=== PATIENT | female | born 1975 | race Caucasian/White ===

== ENCOUNTER 2022-08-10 14:41 | Outpatient (CLI) | payer BC, SELFPAY ==
--- NOTE | 2022-08-10 15:00 | CRLHL7_ITS ---
For Patients: As a result of the Century Cures Act, medical imaging exams and procedure reports are released immediately into your electronic medical record. You may view this report before your referring provider. If you have questions, please contact your health care provider. CLINICAL HISTORY: Vaginal bleeding after hysterectomy TECHNIQUE: Real time, hastings scale images were acquired of the pelvis using a transabdominal and transvaginal approach. Color Doppler analysis was performed of the ovaries. FINDINGS: Hysterectomy. Right ovary measures 2.2 x 1.1 x 1.8 centimeters left ovary measures 2.8 x 1.5 x 2.3 centimeters ovaries appear unremarkable. Normal left flow to both ovaries there is no free fluid. No adnexal mass. IMPRESSION: Unremarkable ultrasound. Dictated by Theodora Choudhary MD @ 08/10/2022 7:03:34 PM (Electronically Signed)
== END 2022-08-10 14:42 | disposition home or self-care (01) ==
LOC: US 14:42
PROVIDERS: PCP Family Medicine; Visit Provider Registered Nurse
DX: N93.9 Abnormal uterine and vaginal bleeding, unspecified (principal)
CPT/HCPCS: 76830; 76856

== ENCOUNTER 2022-08-22 07:50 | Outpatient (CLI) | payer BC, SELFPAY ==
--- NOTE | 2022-08-22 08:00 | CRLHL7_ITS ---
For Patients: As a result of the 21st Century Cures Act, medical imaging exams and procedure reports are released immediately into your electronic medical record. You may view this report before your referring provider. If you have questions, please contact your health care provider. INDICATION: Left flank pain and left pelvis pain. Spotting. COMPARISON: No prior CT TECHNIQUE: CT examination of the abdomen and pelvis was performed following the uneventful intravenous administration of 74 cc of Omnipaque 350. Thin section axial images were obtained from the lung bases through the pubic symphysis. Oral contrast was not administered. Please note that all CT scans at this facility use dose modulation, iterative reconstruction, and/or weight-based dosing when appropriate to reduce radiation dose to as low as reasonably achievable. FINDINGS: LUNG BASES: The lung bases as visualized appear normal.The heart size is normal at the lung bases. LIVER/BILIARY SYSTEM:The liver is normal in size. A few scattered low-density lesions are noted that are too small to characterize but statistically most likely benign. There has been a cholecystectomy. Mild intra and extrahepatic biliary ductal dilatation. This is probably due to reservoir phenomena. Whether this requires further imaging should be based on the presence or absence of right upper quadrant pain and LFTs. ADRENALS: Normal KIDNEYS, URETERS and BLADDER:The kidneys appear normal. No visible mass, calculus or hydronephrosis. The ureters and bladder as visualized appear normal. SPLEEN:Normal appearance. PANCREAS: Appears normal. RETROPERITONEUM and MESENTERY: There is no mass, adenopathy or aortic aneurysm. GASTROINTESTINAL SYSTEM: There is no evidence of diverticulitis, colitis, mechanical obstruction, or appendicitis. The small bowel as visualized appears normal.Mild diffuse fecal retention PELVIS: No mass, adenopathy or free fluid.The uterus appears to be surgically absent OSSEOUS STRUCTURES and ABDOMINAL WALL: There is an age-appropriate appearance of the osseous structures.There is small fat containing umbilical hernia OTHER: No free fluid or free air. IMPRESSION: 1. Scattered low-density hepatic lesions are indeterminate but probably benign. Mild biliary ductal dilatation likely a reservoir phenomena status post cholecystectomy. Please review the comment regarding this finding. 2. No specific visible cause for pain or spotting. The uterus is surgically absent 3. Other incidental findings as above. Please note that all CT scans at this facility use dose modulation, iterative reconstruction, and/or weight-based dosing when appropriate to reduce radiation dose to as low as reasonably achievable. Dictated by David Jiménez MD @ 08/22/2022 8:36:15 AM (Electronically Signed)
== END 2022-08-22 07:51 | disposition home or self-care (01) ==
LOC: CT 07:51
PROVIDERS: PCP Family Medicine; Visit Provider Registered Nurse
DX: R10.2 Pelvic and perineal pain (principal); K76.9 Liver disease, unspecified
CPT/HCPCS: 74177; Q9967

== ENCOUNTER 2022-11-22 09:52 | Outpatient (CLI) | payer BC, SELFPAY ==
--- NOTE | 2022-11-22 10:00 | CRLHL7_ITS ---
For Patients: As a result of the Century Cures Act, medical imaging exams and procedure reports are released immediately into your electronic medical record. You may view this report before your referring provider. If you have questions, please contact your health care provider. Indication: Sinusitis Technique: Performed without IV contrast Comparison: 07/04/2017 Findings: Frontal sinuses: Clear. Ethmoid sinuses: Clear. Maxillary sinuses: Clear. The maxillary sinus drainage pathways are patent on both sides. Sphenoid sinuses: Clear, including both sphenoethmoidal recesses. Nasal Cavity: Postop changes left partial septoplasty. Leftward deviation nasal septum with a left-sided nasal septal spur, unchanged. No toby bullosa. No polyps. No TMJ abnormalities identified. The visualized portions of the orbits, intracranial contents and upper soft tissue neck are grossly negative. Impression: 1. Clear paranasal sinuses. 2. Leftward nasal septal deviation with a left-sided nasal septal spur. Please note that all CT scans at this facility use dose modulation, iterative reconstruction, and/or weight-based dosing when appropriate to reduce radiation dose to as low as reasonably achievable. Dictated by Isreal Good MD @ 11/22/2022 10:46:06 AM (Electronically Signed)
== END 2022-11-22 09:53 | disposition home or self-care (01) ==
LOC: CT 09:54
PROVIDERS: PCP Family Medicine; Visit Provider Otolaryngology
DX: J32.9 Chronic sinusitis, unspecified (principal); J34.2 Deviated nasal septum
CPT/HCPCS: 70486